=== PATIENT | male | born 1940 | race Caucasian/White ===

== ENCOUNTER 2018-03-15 17:29 | Emergency (ER) | payer OTHER ==
--- NOTE | 2018-03-15 18:47 | RAD REPORT ---
EXAM DESCRIPTION: Ludin Single View03/15/2018 6:39 pm CLINICAL HISTORY: Chest pain COMPARISON: none FINDINGS: The left lateral base is not included on the film and is not evaluated. The visualized lungs appear clear of acute infiltrate. A granuloma is present within the left lung. T he heart is normal size IMPRESSION: No acute abnormalities displayed
[2018-03-15 19:33] LABS: Absolute Lymphocytes (CBC) 1.7 K/uL (0.7-4.9); Absolute Monocytes 0.6 K/uL (0.1-1.3); Absolute Neutrophil 2.9 K/uL (1.8-8.0); Basophils % 0.7 % (0-1.3); Eosinophils % 6.1 % (0-4.4); Hematocrit 42.9 % (39.6-49.0); Lymphocytes % 30.8 % (15.3-44.8); MCH 29.6 pg (27.0-35.0); MCV 89.4 fL (80-100); MPV 9.1 fL (7.6-11.3)
[2018-03-15 19:36] LABS: Protime INR 1.23
[2018-03-15 19:43] LABS: Potassium 3.5 mEq/L (3.6-5.0)
[2018-03-15 19:48] LABS: Urine Blood NEGATIVE (NEG); Urine Glucose NEGATIVE (NEG); Urine Protein NEGATIVE (NEG); Urine pH 6.5 (5.0-7.0)
[2018-03-15 19:49] LABS: Albumin 3.8 g/dL (3.2-5.5); Bilirubin Direct 0.2 mg/dL (0-0.2); Bilirubin Total 1.7 mg/dL (0.3-1.2); Protein, Total 6.9 g/dL (6.0-8.3)
[2018-03-15 19:53] LABS: CKMB Creatine Kinase MB 1.9 ng/ml (0.3-4.0)
--- NOTE | 2018-03-15 20:44 | ER ---
Nurse's Notes [facility] Name: Senthil Nix Age: 77 yrs Sex: Male : 1940 Arrival Date: 03/15/2018 Time: 17:35 Bed 23 Private MD: Unknown, Unknown Diagnosis: Lower extremity edema - Bilateral Presentation: 03/15 17:41 Presenting complaint: Patient states: " When I woke up this morning it felt like the ph bottoms of both of my feet were on fire. My daughter said I should get checked for a blood clot." Swelling noted to phillip legs, appears worse on L, pt reports pain in phillip feet, denies SOB, dizziness, or chest pain. Transition of care: patient was not received from another setting of care. Onset of symptoms was March 15, 2018. Risk Assessment: Do you want to hurt yourself or someone else? Patient reports no desire to harm self or others. Initial Sepsis Screen: Does the patient meet any 2 criteria? No. Patient's initial sepsis screen is negative. Does the patient have a suspected source of infection? No. Patient's initial sepsis screen is negative. Care prior to arrival: None. 17:41 Method Of Arrival: Ambulatory ph 17:41 Acuity: LUISA 3 ph Historical: - Allergies: 17:45 No Known Allergies; ph - Home Meds: 17:45 None [Active]; ph - PMHx: 17:45 None; ph - PSHx: 17:45 None; ph - Immunization history:: Adult Immunizations unknown. - Social history:: Smoking status: Patient/guardian denies using tobacco. - Ebola Screening: : No symptoms or risks identified at this time. Screenin:58 Abuse screen: Denies threats or abuse. Nutritional screening: No deficits noted. tl3 Tuberculosis screening: No symptoms or risk factors identified. Fall Risk None identified. Assessment: 17:55 General: Appears uncomfortable, well groomed, well developed, well nourished, Behavior tl3 is calm, cooperative, appropriate for age. Pain: Denies pain. Neuro: No deficits noted. Level of Consciousness is awake, alert, obeys commands, Oriented to person, place, time, situation, Appropriate for age. Cardiovascular: Heart tones S1 S2 present Patient's skin is warm and dry. Cardiovascular: Reports. Cardiovascular: Reports since swelling in bilateral lower legs since this am, rigght measures 16 1/8 inches, left measures 16.5 inches. Respiratory: Airway is compromised Respiratory effort is even, unlabored, Respiratory pattern is regular, symmetrical, Breath sounds are clear bilaterally. GI: No deficits noted. No signs and/or symptoms were reported involving the gastrointestinal system. : No deficits noted. No signs and/or symptoms were reported regarding the genitourinary system. :. EENT: No deficits noted. No signs and/or symptoms were reported regarding the EENT system. Derm: No deficits noted. No signs and/or symptoms reported regarding the dermatologic system. Musculoskeletal: No deficits noted. No signs and/or symptoms reported regarding the musculoskeletal system. 19:37 Reassessment: Patient appears in no apparent distress at this time. No changes from tl3 previously documented assessment. Patient and/or family updated on plan of care and expected duration. Pain level reassessed. Patient is alert, oriented x 3, equal unlabored respirations, skin warm/dry/pink. 20:16 Reassessment: Patient appears in no apparent distress at this time. No changes from tl3 previously documented assessment. Patient and/or family updated on plan of care and expected duration. Pain level reassessed. Patient is alert, oriented x 3, equal unlabored respirations, skin warm/dry/pink. 21:01 Reassessment: Patient appears in no apparent distress at this time. No changes from tl3 previously documented assessment. Patient and/or family updated on plan of care and expected duration. Pain level reassessed. Patient is alert, oriented x 3, equal unlabored respirations, skin warm/dry/pink. Vital Signs: 17:43 BP 141 / 87; Pulse 76; Resp 18; Temp 97.8; Pulse Ox 96% on R/A; Weight 80.29 kg; Height ph 5 ft. 11 in. (180.34 cm); 17:58 Pulse 72; Resp 18; Pulse Ox 97% ; tl3 19:37 BP 167 / 90; Pulse 72; Resp 18; Pulse Ox 97% ; tl3 20:16 BP 146 / 86; Pulse 76; Resp 18; Pulse Ox 99% ; tl3 21:01 BP 175 / 82; Pulse 62; Resp 18; Pulse Ox 100% ; tl3 17:43 Body Mass Index 24.69 (80.29 kg, 180.34 cm) ED Course: 17:35 Patient arrived in ED. mr 17:35 Unknown, Unknown is Private Physician. mr 17:43 Triage completed. ph 17:45 Arm band placed on. ph 17:47 Braden Cheema PA is PHCP. [facility] 17:47 Kavin Guillen MD is Attending Physician. [facility] 17:55 Ev Lennon, RN is Primary Nurse. tl3 17:58 Patient has correct armband on for positive identification. Placed in gown. Bed in low tl3 position. Call light in reach. Side rails up X 1. 17:58 No provider procedures requiring assistance completed. tl3 18:36 X-ray completed. Portable x-ray completed in exam room. Patient tolerated procedure ml well. 18:37 XRAY Chest (1 view) In Process Unspecified. EDMS 18:50 Ultrasound completed. Patient tolerated well. 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 sg3 19:37 Inserted saline lock: 20 gauge in right antecubital area, using aseptic technique. tl3 Blood collected. 20:17 Extrem Venous W Compress Phillip Sent. tl3 21:01 IV discontinued, intact, bleeding controlled, No redness/swelling at site. Pressure tl3 dressing applied. Administered Medications: No medications were administered Outcome: 20:44 Discharge ordered by . [facility] 21:01 Discharged to home ambulatory. tl3 21:01 Condition: stable 21:01 Discharge instructions given to patient, family, Instructed on discharge instructions, follow up and referral plans. Demonstrated understanding of instructions, follow-up care. 21:03 Patient left the ED. tl3 Signatures: Dispatcher [employer] [facility] Braden Cheema PA PA [facility] Shana Pascal mr Hudson, Annabelle Maia Ramsey, JULIO RN [facility] Ev Lennon, RN RN tl3 Corrections: (The following items were deleted from the chart) 21:17 21:12 In radiology for Extrem Venous W Compress Phillip. [facility] sg3
--- NOTE | 2018-03-15 20:45 | EDPHYS ---
Physician Documentation [facility] Name: Senthil Nix Age: 77 yrs Sex: Male : 1940 Arrival Date: 03/15/2018 Time: 17:35 Bed 23 Private MD: Unknown, Unknown ED Physician Kavin Guillen HPI: 03/15 18:10 This 77 yrs old Male presents to ER via Ambulatory with complaints of Foot jmm Pain. 18:10 The patient presents with swelling. Onset: The symptoms/episode began/occurred jmm gradually, 1 month(s) ago. Modifying factors: The symptoms are alleviated by nothing. the symptoms are aggravated by nothing. This is a 77 year old male whom denies any chronic medical conditions presents to the ED with bilateral leg swelling for the past month. Patient denies hx of heart failure. Denies SOB or chest pain. Patient states today he developed bilateral plantar foot pain upon walking earlier this morning. Denies known injury. The patient also denies fever. . Historical: - Allergies: 17:45 No Known Allergies; ph - Home Meds: 17:45 None [Active]; ph - PMHx: 17:45 None; ph - PSHx: 17:45 None; ph - Immunization history:: Adult Immunizations unknown. - Social history:: Smoking status: Patient/guardian denies using tobacco. - Ebola Screening: : No symptoms or risks identified at this time. ROS: 18:10 Constitutional: Negative for fever, chills, and weight loss, Cardiovascular: Negative jmm for chest pain, palpitations, and edema, Respiratory: Negative for shortness of breath, cough, wheezing, and pleuritic chest pain, Abdomen/GI: Negative for abdominal pain, nausea, vomiting, diarrhea, and constipation. 18:10 MS/extremity: Positive for swelling. 18:10 Skin: Negative for redness. 18:10 Neuro: Negative for weakness. 18:10 All other systems are negative. Exam: 18:10 Head/Face: atraumatic. Cardiovascular: Regular rate and rhythm. No gallops, murmurs, jmm or rubs. Full/Equal distal pulses. Respiratory: Lungs have equal breath sounds bilaterally, clear to auscultation. No rales, rhonchi or wheezes noted. No increased work of breathing, no retractions or nasal flaring. 18:10 Constitutional: The patient appears in no acute distress, alert, awake. 18:10 Musculoskeletal/extremity: bilateral pedal edema noted, full dorsalis pedis pulse bilaterally, compartments soft, NVI. 18:10 Skin: Appearance: Color: normal in color. 18:10 Neuro: Orientation: is normal, Mentation: is normal, Memory: is normal. Vital Signs: 17:43 BP 141 / 87; Pulse 76; Resp 18; Temp 97.8; Pulse Ox 96% on R/A; Weight 80.29 kg; Height ph 5 ft. 11 in. (180.34 cm); 17:58 Pulse 72; Resp 18; Pulse Ox 97% ; tl3 19:37 BP 167 / 90; Pulse 72; Resp 18; Pulse Ox 97% ; tl3 20:16 BP 146 / 86; Pulse 76; Resp 18; Pulse Ox 99% ; tl3 21:01 BP 175 / 82; Pulse 62; Resp 18; Pulse Ox 100% ; tl3 17:43 Body Mass Index 24.69 (80.29 kg, 180.34 cm) ph MDM: 18:10 Patient medically screened. [facility] 18:10 Differential diagnosis: lymphadema, edema, chf, dvt. Data reviewed: vital signs, nurses [facility] notes. 20:42 Data reviewed: lab test result(s), EKG, radiologic studies, plain films, ultrasound. [facility] 20:45 Counseling: I had a detailed discussion with the patient and/or guardian regarding: the [facility] presence of at least one elevated blood pressure reading (>120/80) during this emergency department visit. 20:45 ED course: Labs and imaging studies reveal no signs of DVT, heart failure. Patient is [facility] advised to follow up with his PCP for reevaluation. Patient advised to return to the ED if he develops shortness of breath, fever, or behavior change. . 03/15 18:12 Order name: Basic Metabolic Panel; Complete Time: 20:07 [facility] 03/15 18:12 Order name: BNP; Complete Time: 20: [facility] 03/15 18:12 Order name: CBC with Diff; Complete Time: 19:45 [facility] 03/15 18:12 Order name: Ckmb; Complete Time: 20: [facility] 03/15 18:12 Order name: CPK; Complete Time: 20: [facility] 03/15 18:12 Order name: LFT's; Complete Time: 20:07 [facility] 03/15 18:12 Order name: Magnesium; Complete Time: 20:07 [facility] 03/15 18:12 Order name: PT-INR; Complete Time: 19:45 [facility] 03/15 18:12 Order name: Ptt, Activated; Complete Time: 19:45 [facility] 03/15 18:12 Order name: Troponin (emerg Dept Use Only); Complete Time: 20:07 [facility] 03/15 18:12 Order name: XRAY Chest (1 view); Complete Time: 19:12 [facility] 03/15 19:26 Order name: Urine Dipstick--Ancillary (enter results); Complete Time: 20:07 [facility] 03/15 18:12 Order name: EKG; Complete Time: 18:13 [facility] 03/15 18:12 Order name: Cardiac monitoring; Complete Time: 19:39 [facility] 03/15 18:12 Order name: EKG - Nurse/Tech; Complete Time: 19:39 [facility] 03/15 18:12 Order name: IV Saline Lock; Complete Time: 19:39 [facility] 03/15 18:12 Order name: Labs collected and sent; Complete Time: 19:39 [facility] 03/15 18:12 Order name: O2 Per Protocol; Complete Time: 19:39 [facility] 03/15 18:12 Order name: O2 Sat Monitoring; Complete Time: 19:39 [facility] 03/15 18:12 Order name: Urine Dipstick-Ancillary (obtain specimen); Complete Time: 19:39 [facility] 03/15 18:29 Order name: Extrem Venous W Compress Sy EDMS Administered Medications: No medications were administered Disposition: 03/15/18 20:44 Discharged to Home. Impression: Lower extremity edema - Bilateral. - Condition is Stable. - Discharge Instructions: Lymphedema. - Medication Reconciliation Form, Thank You Letter, Antibiotic Education, Prescription Opioid Use form. - Follow up: Private Physician; When: 2 - 3 days; Reason: Continuance of care. - Notes: Please follow up with your primary care clinical informatics specialist for further evaluation of your lower extremity swelling. Please return to the ED if you develop shortness of breath, increased swelling, pain, redness, or fever. Addendum: 03/20/2018 15:26 Co-signature as Attending Physician, Kavin Guillen MD I agree with the assessment and k dr plan of care. Signatures: Dispatcher [employer] [facility] Kavin Guillen MD MD kdr Mickail, Joel, PA PA jmm Hall, Patricia, RN RN Ev Lennon RN RN tl3 Corrections: (The following items were deleted from the chart) 03/15 18:29 18:13 Extremity Venous Uni Ltd+US.RAD.BRZ ordered. [facility] EDVT 18:29 18:13 Extremity Venous Uni Ltd+US.RAD.BRZ ordered. [facility] 21:03 20:44 03/15/2018 20:44 Discharged to Home. Impression: Lower extremity edema - tl3 Bilateral. Condition is Stable. Forms are Medication Reconciliation Form, Thank You Letter, Antibiotic Education, Prescription Opioid Use. Follow up: Private Physician; When: 2 - 3 days; Reason: Continuance of care. bell
--- NOTE | 2018-03-15 21:26 | RAD REPORT ---
EXAM DESCRIPTION: VASExtrem Venous W Compress Bil03/15/2018 9:11 pm CLINICAL HISTORY: Bilateral leg swelling COMPARISON: none FINDINGS: The common femoral, superficial femoral, popliteal and posterior tibial veins bilaterally are compressible and demonstrate augmentation. Doppler demonstrates good flow. IMPRESSION: No evidence of deep venous thrombosis involving either lower extremity.
--- NOTE | 2018-03-16 07:56 | EKG ---
Test Date: 2018-03-15 Test Time: 20:11:37 Power Sweeper Operator: TL MEASUREMENT RESULTS: Intervals: Rate: 64 NM: 162 QRSD: 90 QT: 422 QTc: 435 [place]: P: -9 NM: 162 QRS: 64 T: 32 INTERPRETIVE STATEMENTS: Normal sinus rhythm Normal ECG No previous ECG available for comparison Electronically Signed On 03-16-18 07:54:56 CDT by Joaquin Nettles
== END 2018-03-15 21:03 | disposition home or self-care (01) ==
LOC: ER 17:29
DX: R60.0 Localized edema (principal)
CPT/HCPCS: 36415; 71045; 80048; 80076; 81003; 82550; 82553; 83735; 83880; 84484; 85025; 85610; 85730; 93005; 93970; 99284